=== PATIENT | female | born 1930 | race Caucasian/White ===

== ENCOUNTER 2016-11-22 20:39 | Emergency (ER) | payer BC, MEDICARE ==
[~2016-11-22] VITALS: Ht 149.9 cm; Wt 49.9 kg
[2016-11-22] MEDS ORDERED: TDAP [DIPH/PERTUSSIS/TET] 0.5 ML VIAL IM ONE ×2 (21:30→23:54)
--- NOTE | 2016-11-22 22:46 | NUR ---
[facility] CALLED TO EXPEDITE RADIOLOGY REPORTS. WAS INFORMED BY SHAHEED THAT DR. MADRIGAL IS CURRENTLY EVALUATING THE IMAGES AT THIS TIME.
[2016-11-22] MEDS ORDERED: HYDROCODONE/APAP 5/325MG 1 EACH TABLET ONE (23:25)
[2016-11-22] MEDS ORDERED: HYDROCODONE/APAP 5/325MG 1 EACH TABLET PO ONE (23:30)
[2016-11-22 23:40] VITALS: BP 126/71
--- NOTE | 2016-11-22 23:40 | NUR ---
Patient discharged to home in stable condition. Written and verbal after care instructions given. Patient verbalizes understanding of instruction. IV removed. Catheter intact and site benign. Pressure and 4x4 applied to site. No bleeding noted. NAD NOTED UPON DISCHARGE, FAMILY AT BEDSIDE.
--- NOTE | 2016-11-22 23:56 | NUR ---
PATIENT CHANGED HER MIND ABOUT THE TET. VAC. AND DR. WILKINS ORDERED THE MEDICATION, IT WAS GIVEN POST DISCHARGE, PATIENT STILL IN BED.
[2016-11-23] MEDS ORDERED: TDAP [DIPH/PERTUSSIS/TET] 0.5 ML VIAL IM ONE
== END 2016-11-22 23:41 | disposition home or self-care (01) ==
LOC: ER 20:41
DX: S02.82XA Fracture of other specified skull and facial bones, left side, initial encounter for closed fracture (principal); S01.112A Laceration without foreign body of left eyelid and periocular area, initial encounter; S05.12XA Contusion of eyeball and orbital tissues, left eye, initial encounter; S05.11XA Contusion of eyeball and orbital tissues, right eye, initial encounter; Y04.2XXA Assault by strike against or bumped into by another person, initial encounter; Y93.89 Activity, other specified; Y92.89 Other specified places as the place of occurrence of the external cause; Y99.9 Unspecified external cause status
CPT/HCPCS: 70450-TC; 70486-TC; 72125-TC; 90715; A4606; A6403; Z7610